=== PATIENT | male | born 1975 | race African-American/Black ===

== ENCOUNTER 2021-02-23 12:47 | Inpatient (IN) | payer MEDICARE, MEDICAID ==
[~2021-02-23] VITALS: Ht 175.3 cm; Wt 92.6 kg
[~2021-02-23 12:47] MED LIST: AMLO10TA80 PO; ENAL20TA18 PO; HYDR-4134 PO; MINO2.5T19 PO; MULTI VITAMINS
[2021-02-23 14:26] LABS: BASOPHILS % 1.4 % (0.0-2.0); EOSINOPHILS % 1.9 % (0.0-5.0); HEMATOCRIT. 29.4 % (42.0-52.0); HEMOGLOBIN. 9.7 g/dL (14.0-18.0); LYMPHOCYTES % 13.3 % (20.0-50.0); MEAN CORPUSCULAR HEMOGLOBIN 30.1 pg (28.0-32.0); MEAN CORPUSCULAR VOLUME 91.3 fL (80.0-94.0); MEAN PLATELET VOLUME 7.4 fl (7.4-10.4); MONOCYTES % 9.4 % (2.0-8.0); PLATELET 250 x1000/uL (130-400); RED BLOOD CELL COUNT 3.22 mill/uL (4.7-6.1)
[2021-02-23 14:32] LABS: CHLORIDE 101 mEq/L (98-107)
[2021-02-23] MEDS ORDERED: MORPHINE SULFATE 2 MG/ML CPJ (NOT FOR IM USE) IV PRN (17:00)
[2021-02-23] MEDS ORDERED: ONDANSETRON HCL 4MG/2ML INJ IV PRN (17:00)
[2021-02-23] MEDS ORDERED: ACETAMINOPHEN 325MG TABLET PO PRN (17:00)
[2021-02-23] MEDS: AMLODIPINE 10MG TABLET PO SCH (17:15)
[2021-02-23] MEDS: METOPROLOL TARTRATE 25MG TABLET PO SCH (23:44)
[2021-02-24] VITALS (8 sets, daily range): BP systolic 120–159; BP diastolic 76–93
[2021-02-24] MEDS: ZOLPIDEM TARTRATE 5MG TABLET PO PRN (03:25)
[2021-02-24] MEDS ORDERED: TAP5 PO (05:53)
[2021-02-24] MEDS ORDERED: CALC0.253 PO (06:08)
[2021-02-24] MEDS ORDERED: CALC667T6 PO (06:08)
[2021-02-24] MEDS ORDERED: CHOL200074 (06:10)
[2021-02-24 06:41] LABS: CHLORIDE 98 mEq/L (98-107)
[2021-02-24 06:50] LABS: LDL CHOLESTEROL 87 mg/dL (5-100)
[2021-02-24 06:50] LABS: EOSINOPHILS % 1.8 % (0.0-5.0); HEMATOCRIT. 28.1 % (42.0-52.0); HEMOGLOBIN. 9.3 g/dL (14.0-18.0); LYMPHOCYTES % 11.5 % (20.0-50.0); MEAN CORPUSCULAR HEMOGLOBIN 30.4 pg (28.0-32.0); MEAN CORPUSCULAR VOLUME 91.5 fL (80.0-94.0); MONOCYTES % 7.2 % (2.0-8.0); NEUTROPHILS % 78.5 % (40.0-76.0); PLATELET 238 x1000/uL (130-400); RED BLOOD CELL COUNT 3.07 mill/uL (4.7-6.1); RED CELL DISTRIBUTION WIDTH 18.2 % (11.6-14.6)
[2021-02-24 06:52] LABS: HDL CHOLESTEROL 35 mg/dL (40-59)
[2021-02-24] MEDS: AMLODIPINE 10MG TABLET PO SCH (08:52)
[2021-02-24] MEDS: MINOXIDIL 2.5MG TABLET PO SCH (08:52)
[2021-02-24] MEDS: METOPROLOL TARTRATE 25MG TABLET PO SCH ×2 (08:53→21:48)
[2021-02-24] MEDS ORDERED: HYDRALAZINE HCL 25MG TABLET PO SCH (09:00)
[2021-02-24 11:21] LABS: PARTIAL THROMBOPLASTIN TIME 32.2 sec (23.4-31.0); PROTHROMBIN TIME 10.9 sec (9.6-11.0)
[2021-02-24] MEDS ORDERED: EPOETIN ALFA-EPBX 10,000 UNIT/ML VIAL SUBCUT SCH (21:00)
[2021-02-25] VITALS (37 sets, daily range): BP systolic 127–157; BP diastolic 74–100
[2021-02-25] MEDS: ZOLPIDEM TARTRATE 5MG TABLET PO PRN (00:07)
[2021-02-25 07:07] LABS: BASOPHILS % 1.1 % (0.0-2.0); EOSINOPHILS % 2.3 % (0.0-5.0); HEMATOCRIT. 28.1 % (42.0-52.0); HEMOGLOBIN. 9.2 g/dL (14.0-18.0); LYMPHOCYTES % 14.7 % (20.0-50.0); MEAN CORPUSCULAR HEMOGLOBIN 30.8 pg (28.0-32.0); MEAN CORPUSCULAR VOLUME 93.9 fL (80.0-94.0); MEAN PLATELET VOLUME 7.8 fl (7.4-10.4); MONOCYTES % 10.2 % (2.0-8.0); NEUTROPHILS % 71.7 % (40.0-76.0); PLATELET 250 x1000/uL (130-400); RED BLOOD CELL COUNT 2.99 mill/uL (4.7-6.1); RED CELL DISTRIBUTION WIDTH 18.1 % (11.6-14.6)
[2021-02-25] MEDS ORDERED: CEFAZOLIN 1000MG PREMIX 50 ML IV NR (07:30)
[2021-02-25] MEDS ORDERED: CEFAZOLIN 1000MG PREMIX 50 ML IV ONE (07:34)
[2021-02-25] MEDS ORDERED: HEPARIN 1000 UNITS/ML 10ML ONE (07:52)
[2021-02-25] MEDS ORDERED: IOHEXOL-300 100 ML BOTTLE ONE (07:52)
[2021-02-25] MEDS ORDERED: LIDOCAINE HCL 1% 20ML VIAL (Pyxis) INJ ONE (07:52)
[2021-02-25] MEDS ORDERED: FENTANYL CITRATE/PF 50MCG/ML 2ML VIAL ONE ×2 (08:14→09:26)
[2021-02-25] MEDS ORDERED: FENTANYL CITRATE/PF 50MCG/ML 2ML VIAL IV ONE (08:15)
[2021-02-25] MEDS ORDERED: ALTEPLASE 2MG/VIAL ITC NR ×2 (09:00)
[2021-02-25] MEDS ORDERED: HYDRALAZINE HCL 50MG TABLET PO SCH (09:00)
[2021-02-25] MEDS ORDERED: HEPARIN 5000 UNITS/ML VIAL IV ONE (09:00)
[2021-02-25] MEDS: MINOXIDIL 2.5MG TABLET PO SCH (11:00)
[2021-02-25] MEDS: METOPROLOL TARTRATE 25MG TABLET PO SCH (11:00)
[2021-02-25] MEDS: AMLODIPINE 10MG TABLET PO SCH (11:00)
[2021-02-25 12:39] LABS: T4 FREE 0.91 ng/dL (0.76-1.46)
[2021-02-25] MEDS ORDERED: HEPARIN SODIUM 1,000 UNIT/1ML VIAL IV NR (16:00)
== END 2021-02-25 18:12 | disposition home or self-care (01) | DRG 252 ==
LOC: ER 12:47 → 5WST 17:13 → ENRESERV 21:51
PROVIDERS: ADMIT Internal Medicine Nephrology; ATTEND Internal Medicine Nephrology
PROC: 3E03317 Introduction of Other Thrombolytic into Peripheral Vein, Percutaneous Approach (ICD-10-PCS; principal; 2021-02-25)
PROC: 03WY37Z Revision of Autologous Tissue Substitute in Upper Artery, Percutaneous Approach (ICD-10-PCS; 2021-02-25)
PROC: B51W1ZZ Fluoroscopy of Dialysis Shunt/Fistula using Low Osmolar Contrast (ICD-10-PCS; 2021-02-25)
PROC: 05WY37Z Revision of Autologous Tissue Substitute in Upper Vein, Percutaneous Approach (ICD-10-PCS; 2021-02-25)
DX: T82.510A Breakdown (mechanical) of surgically created arteriovenous fistula, initial encounter (principal); N18.6 End stage renal disease; I12.0 Hypertensive chronic kidney disease with stage 5 chronic kidney disease or end stage renal disease; T82.898A Other specified complication of vascular prosthetic devices, implants and grafts, initial encounter; D64.9 Anemia, unspecified; E87.5 Hyperkalemia; Y71.2 Prosthetic and other implants, materials and accessory cardiovascular devices associated with adverse incidents; Z20.822 Contact with and (suspected) exposure to COVID-19; E03.9 Hypothyroidism, unspecified; C73 Malignant neoplasm of thyroid gland; Y82.8 Other medical devices associated with adverse incidents; Y83.2 Surgical operation with anastomosis, bypass or graft as the cause of abnormal reaction of the patient, or of later complication, without mention of misadventure at the time of the procedure; Z99.2 Dependence on renal dialysis; Z79.899 Other long term (current) drug therapy; Y92.89 Other specified places as the place of occurrence of the external cause
CPT/HCPCS: 36415; 36905; 71045; 76937; 80048; 80053; 80061; 83880; 84439; 84443; 84484; 85025; 87426; 93005; 93306; 93970; 99152; 99153; 99285; C1725; C1766; C1769; J0690; J0885; J1644; J2270; J2997; J3010; J3490; Q9967; G0500

== ENCOUNTER → 2021-03-24 | Day surgery (SDC) | payer MEDICARE, MEDICAID ==
[~2021-03-24] VITALS: Ht 175.3 cm; Wt 87.5 kg
[~2021-03-24] MED LIST changes: +CALC0.253 PO; +CALC667T6 PO; +CHOL2000 PO; +CHOL200074; +CHOL200074 PO; +FENTANYL CITRATE/PF 50MCG/ML 2ML VIAL IV PRN; +FENTANYL CITRATE/PF 50MCG/ML 2ML VIAL ONE; +HEPARIN 1000 UNITS/ML 10ML ONE; +LIDOCAINE HCL/PF 1% 10 MG/ML 5ML VIAL ONE; +MORPHINE SULFATE 2 MG/ML CPJ (NOT FOR IM USE) IV PRN; +ONDANSETRON HCL 4MG/2ML INJ IV PRN; +PHENYLEPHRINE HCL 10 MG/ML 1ML (IV VIAL) IV ONE; +PROPOFOL 200MG/20ML VIAL IV ONE; +SODIUM CHLORIDE 0.9% 500 ML IV ONE; +TAP5 PO
[2021-03-24 06:37] LABS: BASOPHILS % 0.5 % (0.0-2.0); EOSINOPHILS % 2.8 % (0.0-5.0); HEMATOCRIT. 33.4 % (42.0-52.0); HEMOGLOBIN. 10.8 g/dL (14.0-18.0); MEAN CORPUSCULAR HEMOGLOBIN 30.1 pg (28.0-32.0); MEAN CORPUSCULAR VOLUME 93.3 fL (80.0-94.0); MEAN PLATELET VOLUME 7.9 fl (7.4-10.4); MONOCYTES % 8.6 % (2.0-8.0); NEUTROPHILS % 74.1 % (40.0-76.0); PLATELET 182 x1000/uL (130-400); RED BLOOD CELL COUNT 3.58 mill/uL (4.7-6.1); RED CELL DISTRIBUTION WIDTH 19.2 % (11.6-14.6)
[2021-03-24 06:56] LABS: PARTIAL THROMBOPLASTIN TIME 29.1 sec (23.4-31.0); PROTHROMBIN TIME 10.5 sec (9.6-11.0)
== END | disposition home or self-care (01) ==
LOC: OR 06:17
PROVIDERS: ATTEND Surgery Vascular Surgery
DX: I12.0 Hypertensive chronic kidney disease with stage 5 chronic kidney disease or end stage renal disease (principal); N18.6 End stage renal disease; E78.5 Hyperlipidemia, unspecified; F17.210 Nicotine dependence, cigarettes, uncomplicated; Z99.2 Dependence on renal dialysis; Z79.899 Other long term (current) drug therapy; Z98.890 Other specified postprocedural states; Z72.89 Other problems related to lifestyle; Z82.49 Family history of ischemic heart disease and other diseases of the circulatory system
CPT/HCPCS: 36415; 36830; 80048; 85025; 85610; 85730; 93005; C1768; J1644; J2370; J2704; J3010; J3490; J7030

== ENCOUNTER 2021-07-17 23:24 | Inpatient (IN) | payer MEDICARE, MEDICAID ==
[~2021-07-17] VITALS: Ht 175.3 cm; Wt 95.3 kg
[~2021-07-17 23:24] MED LIST changes: -CHOL200074; -CHOL200074 PO; -FENTANYL CITRATE/PF 50MCG/ML 2ML VIAL IV PRN; -FENTANYL CITRATE/PF 50MCG/ML 2ML VIAL ONE; -HEPARIN 1000 UNITS/ML 10ML ONE; -LIDOCAINE HCL/PF 1% 10 MG/ML 5ML VIAL ONE; -MINO2.5T19 PO; -MORPHINE SULFATE 2 MG/ML CPJ (NOT FOR IM USE) IV PRN; -MULTI VITAMINS; -ONDANSETRON HCL 4MG/2ML INJ IV PRN; -PHENYLEPHRINE HCL 10 MG/ML 1ML (IV VIAL) IV ONE; -PROPOFOL 200MG/20ML VIAL IV ONE; -SODIUM CHLORIDE 0.9% 500 ML IV ONE
[2021-07-18 01:37] LABS: BASOPHILS % 0.4 % (0.0-2.0); EOSINOPHILS % 2.1 % (0.0-5.0); HEMATOCRIT. 32.8 % (42.0-52.0); HEMOGLOBIN. 11.2 g/dL (14.0-18.0); LYMPHOCYTES % 24.3 % (20.0-50.0); MEAN CORPUSCULAR HEMOGLOBIN 34.1 pg (28.0-32.0); MEAN CORPUSCULAR VOLUME 99.5 fL (80.0-94.0); MEAN PLATELET VOLUME 7.7 fl (7.4-10.4); MONOCYTES % 8.3 % (2.0-8.0); NEUTROPHILS % 64.9 % (40.0-76.0); PLATELET 202 x1000/uL (130-400); RED BLOOD CELL COUNT 3.29 mill/uL (4.7-6.1); RED CELL DISTRIBUTION WIDTH 19.2 % (11.6-14.6)
[2021-07-18] MEDS ORDERED: SODIUM POLYSTYRENE SULFONATE 15 G/60 ML BOT PO SCH (02:15)
[2021-07-18] MEDS ORDERED: ONDANSETRON HCL 4MG/2ML INJ IV PRN (02:15)
[2021-07-18] MEDS ORDERED: CLONIDINE 0.1MG TABLET PO PRN (02:15)
[2021-07-18] MEDS ORDERED: DOCUSATE SODIUM 100MG CAPSULE PO PRN (02:15)
[2021-07-18] MEDS ORDERED: MORPHINE SULFATE 2 MG/ML CPJ (NOT FOR IM USE) IV PRN (02:15)
[2021-07-18] MEDS ORDERED: SODIUM CHLORIDE 0.9% 250 ML IV ONE (06:00)
[2021-07-18] MEDS: CALCIUM ACETATE 667MG CAPSULE PO SCH ×3 (07:22→19:07)
[2021-07-18] MEDS: LEVOTHYROXINE SODIUM 50MCG TABLET PO SCH (07:22)
[2021-07-18] MEDS: HYDRALAZINE HCL 25MG TABLET PO SCH (09:00)
[2021-07-18] MEDS ORDERED: METHIMAZOLE 5MG TABLET PO SCH (09:00)
[2021-07-18] MEDS: AMLODIPINE 10MG TABLET PO SCH (09:00)
[2021-07-18 10:11] LABS: INR 1.1; PARTIAL THROMBOPLASTIN TIME 29.9 sec (23.4-31.0); PROTHROMBIN TIME 11.4 sec (9.6-11.0)
[2021-07-18] MEDS ORDERED: LIDOCAINE HCL 1% 20ML VIAL (Pyxis) INJ ONE (11:59)
[2021-07-18 16:40] LABS: HEPATITIS B SURFACE ANTIGEN NEGATIVE
[2021-07-18 16:42] VITALS: BP 127/84
[2021-07-18 17:10] LABS: HEPATITIS A AB IGM NEGATIVE (NEGATIVE)
[2021-07-18] MEDS: ACETAMINOPHEN 325MG TABLET PO PRN (19:07)
[2021-07-18] MEDS ORDERED: NALOXONE HCL 0.4MG/ML VIAL IV PRN (22:30)
[2021-07-19] MEDS: LEVOTHYROXINE SODIUM 50MCG TABLET PO SCH (06:23)
[2021-07-19] MEDS: CALCIUM ACETATE 667MG CAPSULE PO SCH ×2 (06:24→11:58)
[2021-07-19 08:00] VITALS: BP 94/57
[2021-07-19 08:29] LABS: CHLORIDE 97 mEq/L (98-107)
[2021-07-19 08:32] LABS: HEMATOCRIT. 35.4 % (42.0-52.0); MEAN CORPUSCULAR HEMOGLOBIN 33.8 pg (28.0-32.0); MEAN CORPUSCULAR VOLUME 100.2 fL (80.0-94.0); PLATELET 181 x1000/uL (130-400); RED BLOOD CELL COUNT 3.54 mill/uL (4.7-6.1); RED CELL DISTRIBUTION WIDTH 19.3 % (11.6-14.6)
[2021-07-19 08:35] LABS: LDL CHOLESTEROL 137 mg/dL (5-100)
[2021-07-19 08:36] LABS: HDL CHOLESTEROL 45 mg/dL (40-59)
[2021-07-19] MEDS: HYDRALAZINE HCL 25MG TABLET PO SCH (09:00)
[2021-07-19] MEDS: AMLODIPINE 10MG TABLET PO SCH (09:00)
[2021-07-19] MEDS: ACETAMINOPHEN 325MG TABLET PO PRN (11:58)
[2021-07-19 12:00] VITALS: BP 96/56
[2021-07-19] MEDS ORDERED: HEPARIN SODIUM 1,000 UNIT/1ML VIAL IV NR (12:30)
[2021-07-19 15:27] VITALS: BP 123/70
[2021-07-19] MEDS ORDERED: ATORVASTATIN CALCIUM 20MG TABLET PO SCH (21:00)
[2021-07-20 08:13] LABS: PLATELET ESTIMATE NORMAL
[2021-07-20] MEDS ORDERED: CALCITRIOL 0.25MCG CAPSULE PO SCH (09:00)
== END 2021-07-19 16:47 | disposition home or self-care (01) | DRG 314 ==
LOC: ER 23:24 → MICUSO 07-18 02:11 → 7EST 07-18 13:05
PROVIDERS: ADMIT Internal Medicine Nephrology; ATTEND Internal Medicine Nephrology
PROC: 0J2TXYZ Change Other Device in Trunk Subcutaneous Tissue and Fascia, External Approach (ICD-10-PCS; principal; 2021-07-18)
PROC: 02HV33Z Insertion of Infusion Device into Superior Vena Cava, Percutaneous Approach (ICD-10-PCS; 2021-07-18)
PROC: B5181ZA Fluoroscopy of Superior Vena Cava using Low Osmolar Contrast, Guidance (ICD-10-PCS; 2021-07-18)
PROC: 5A1D70Z Performance of Urinary Filtration, Intermittent, Less than 6 Hours Per Day (ICD-10-PCS; 2021-07-18)
PROC: 5A1D70Z Performance of Urinary Filtration, Intermittent, Less than 6 Hours Per Day (ICD-10-PCS; 2021-07-19)
DX: T82.514A Breakdown (mechanical) of infusion catheter, initial encounter (principal); N18.6 End stage renal disease; I13.2 Hypertensive heart and chronic kidney disease with heart failure and with stage 5 chronic kidney disease, or end stage renal disease; E89.0 Postprocedural hypothyroidism; I50.9 Heart failure, unspecified; E78.5 Hyperlipidemia, unspecified; E87.5 Hyperkalemia; Y84.1 Kidney dialysis as the cause of abnormal reaction of the patient, or of later complication, without mention of misadventure at the time of the procedure; Z20.822 Contact with and (suspected) exposure to COVID-19; Y92.89 Other specified places as the place of occurrence of the external cause; Z99.2 Dependence on renal dialysis; Z79.899 Other long term (current) drug therapy
CPT/HCPCS: 36415; 36581; 71045; 77001; 80048; 80053; 80061; 84443; 85025; 86705; 86709; 86803; 87340; 87426; 93970; 99285; C1750; C1769; J1642; J1644; J2270; J2405; J3490; J7050

== ENCOUNTER 2021-07-28 02:54 | Inpatient (IN) | payer MEDICARE, MEDICAID ==
[~2021-07-28] VITALS: Ht 327.7 cm; Wt 94.8 kg
[2021-07-28] VITALS (21 sets, daily range): BP systolic 102–149; BP diastolic 55–100
[2021-07-28 04:13] LABS: MEAN CORPUSCULAR HEMOGLOBIN 34.1 pg (28.0-32.0); MEAN PLATELET VOLUME 7.1 fl (7.4-10.4); PLATELET 297 x1000/uL (130-400); RED BLOOD CELL COUNT 2.65 mill/uL (4.7-6.1); RED CELL DISTRIBUTION WIDTH 20.6 % (11.6-14.6)
[2021-07-28 04:18] LABS: CHLORIDE 100 mEq/L (98-107)
[2021-07-28 04:28] LABS: INR 1.1; PROTHROMBIN TIME 11.4 sec (9.6-11.0)
[2021-07-28 04:57] LABS: NUCLEATED RED BLOOD CELLS 1 /100 WBC; PLATELET ESTIMATE NORMAL
[2021-07-28] MEDS ORDERED: DEXTROSE 50% WATER 50ML SYRINGE IV ONE (05:15)
[2021-07-28] MEDS ORDERED: INSULIN REGULAR (HUMULIN R) 300UNITS/3ML VIAL IV ONE (05:15)
[2021-07-28] MEDS ORDERED: DOCUSATE SODIUM 100MG CAPSULE PO PRN (08:30)
[2021-07-28] MEDS ORDERED: ACETAMINOPHEN 325MG TABLET PO PRN (08:30)
[2021-07-28] MEDS ORDERED: ONDANSETRON HCL 4MG/2ML INJ IV PRN (08:30)
[2021-07-28] MEDS ORDERED: CLONIDINE 0.1MG TABLET PO PRN (08:30)
[2021-07-28] MEDS ORDERED: NALOXONE HCL 0.4MG/ML VIAL IV PRN (09:00)
[2021-07-28] MEDS: LEVOTHYROXINE SODIUM 50MCG TABLET PO SCH (09:50)
[2021-07-28] MEDS ORDERED: CEFAZOLIN 1000MG PREMIX 50 ML IV ONE ×2 (12:00→12:23)
[2021-07-28] MEDS ORDERED: FENTANYL CITRATE/PF 50MCG/ML 2ML VIAL ONE (12:23)
[2021-07-28] MEDS ORDERED: LIDOCAINE HCL 1% 20ML VIAL (Pyxis) INJ ONE (12:40)
[2021-07-28] MEDS ORDERED: HEPARIN 1000 UNITS/ML 10ML ONE (12:40)
[2021-07-28] MEDS ORDERED: IOHEXOL-300 50 ML BOTTLE IV ONE (12:40)
[2021-07-28] MEDS ORDERED: FENTANYL CITRATE/PF 50MCG/ML 2ML VIAL IV ONE (13:00)
[2021-07-28] MEDS: MORPHINE SULFATE 2 MG/ML CPJ (NOT FOR IM USE) IV PRN ×2 (14:00→21:22)
[2021-07-28 22:03] LABS: HEPATITIS B SURFACE ANTIGEN NEGATIVE
[2021-07-29] VITALS (8 sets, daily range): BP systolic 100–136; BP diastolic 67–84
[2021-07-29] MEDS: LEVOTHYROXINE SODIUM 50MCG TABLET PO SCH (06:14)
[2021-07-29 07:43] LABS: HEMATOCRIT. 24.4 % (42.0-52.0); HEMOGLOBIN. 8.3 g/dL (14.0-18.0); MEAN CORPUSCULAR HEMOGLOBIN 33.8 pg (28.0-32.0); MEAN CORPUSCULAR VOLUME 98.9 fL (80.0-94.0); PLATELET 259 x1000/uL (130-400); RED BLOOD CELL COUNT 2.47 mill/uL (4.7-6.1); RED CELL DISTRIBUTION WIDTH 19.7 % (11.6-14.6)
[2021-07-29 07:49] LABS: CHLORIDE 101 mEq/L (98-107)
[2021-07-29 08:00] LABS: LDL CHOLESTEROL 75 mg/dL (5-100)
[2021-07-29 08:02] LABS: HDL CHOLESTEROL 29 mg/dL (40-59)
[2021-07-29 12:51] LABS: NUCLEATED RED BLOOD CELLS 5 /100 WBC; PLATELET ESTIMATE NORMAL
[2021-07-29] MEDS: MORPHINE SULFATE 2 MG/ML CPJ (NOT FOR IM USE) IV PRN (21:55)
[2021-07-30] VITALS: BP 118/72
== END 2021-07-30 03:20 | disposition left against medical advice (07) | DRG 673 ==
LOC: ER 02:54 → 8WST 04:36 → ENRESERV 07:38
PROVIDERS: ADMIT Internal Medicine Nephrology; ATTEND Internal Medicine Nephrology
PROC: 0JH63XZ Insertion of Tunneled Vascular Access Device into Chest Subcutaneous Tissue and Fascia, Percutaneous Approach (ICD-10-PCS; principal; 2021-07-28)
PROC: 027V3ZZ Dilation of Superior Vena Cava, Percutaneous Approach (ICD-10-PCS; 2021-07-28)
PROC: 02H633Z Insertion of Infusion Device into Right Atrium, Percutaneous Approach (ICD-10-PCS; 2021-07-28)
PROC: B548ZZA Ultrasonography of Superior Vena Cava, Guidance (ICD-10-PCS; 2021-07-28)
PROC: B5181ZA Fluoroscopy of Superior Vena Cava using Low Osmolar Contrast, Guidance (ICD-10-PCS; 2021-07-28)
PROC: 5A1D70Z Performance of Urinary Filtration, Intermittent, Less than 6 Hours Per Day (ICD-10-PCS; 2021-07-28)
PROC: 0JPT3XZ Removal of Tunneled Vascular Access Device from Trunk Subcutaneous Tissue and Fascia, Percutaneous Approach (ICD-10-PCS; 2021-07-28)
PROC: 5A1D70Z Performance of Urinary Filtration, Intermittent, Less than 6 Hours Per Day (ICD-10-PCS; 2021-07-29)
DX: T82.42XA Displacement of vascular dialysis catheter, initial encounter (principal); N18.6 End stage renal disease; I13.2 Hypertensive heart and chronic kidney disease with heart failure and with stage 5 chronic kidney disease, or end stage renal disease; Y84.1 Kidney dialysis as the cause of abnormal reaction of the patient, or of later complication, without mention of misadventure at the time of the procedure; D64.9 Anemia, unspecified; E03.9 Hypothyroidism, unspecified; E87.5 Hyperkalemia; Z20.822 Contact with and (suspected) exposure to COVID-19; I50.9 Heart failure, unspecified; E21.3 Hyperparathyroidism, unspecified; Z99.2 Dependence on renal dialysis; Y92.89 Other specified places as the place of occurrence of the external cause; Z79.899 Other long term (current) drug therapy
CPT/HCPCS: 36415; 36581; 36907; 71045; 77001; 80053; 80061; 82962; 83880; 84484; 85025; 86705; 86709; 86803; 87340; 93005; 99152; 99153; 99285; C1725; C1750; C1769; J0690; J1644; J1815; J2270; J3010; J3490; Q9967; U0003; U0005; G0500